=== PATIENT | female | born 1965 | race Caucasian/White ===

== ENCOUNTER 2020-02-26 08:37 | Day surgery (SDC) | payer BC, SELFPAY ==
[~2020-02-26] VITALS: Ht 162.6 cm; Wt 99.8 kg
[2020-02-26] MEDS ORDERED: ONDANSETRON HCL 4 MG/2 ML VIAL ONE (15:40)
[2020-02-26] MEDS ORDERED: GLYCOPYRROLATE 0.2 MG/ML VIAL ONE (15:40)
[2020-02-26] MEDS ORDERED: MIVACURIUM CHLORIDE 20 MG/10 ML VIAL (MIVACRON) INJ ONE (15:40)
[2020-02-26] MEDS ORDERED: DEXAMETHASONE SOD PHOSPHATE 4 MG/ML VIAL ONE (15:40)
[2020-02-26] MEDS ORDERED: WATER FOR IRRIGATION,STERILE 1,000 ML IRRIG.SOLN IR ONE (15:40)
[2020-02-26] MEDS ORDERED: ROCURONIUM BROMIDE 10 MG/ML (ZEMURON) ONE (15:40)
[2020-02-26] MEDS ORDERED: LR 1,000 ML IV.SOLN IV ONE (15:40)
[2020-02-26] MEDS ORDERED: LIDOCAINE/EPI 1% 1:100000 20 ML VIAL INJ ONE (15:40)
[2020-02-26] MEDS ORDERED: DESFLURANE 15 MIN GAS INH ONE (15:40)
[2020-02-26] MEDS ORDERED: OXYMETAZOLINE HCL 0.05% NASAL SPRAY NS ONE (15:40)
[2020-02-26] MEDS ORDERED: NEOSTIGMINE METHYLSULFATE 1 MG/ML, 10 ML VIAL ONE (15:40)
[2020-02-26] MEDS ORDERED: MIDAZOLAM HCL 5 MG/ML VIAL (VERSED) IV ONE (15:40)
[2020-02-26] MEDS ORDERED: PROPOFOL 200MG/ 20ML VIAL (DIPRIVAN) IV ONE (15:40)
[2020-02-26] MEDS ORDERED: fentaNYL CITRATE/PF 100 MCG/2 ML AMP ONE (15:40)
[2020-02-26] MEDS ORDERED: EPINEPHrine 1 MG/ML AMP ONE (15:40)
[2020-02-26] MEDS ORDERED: NS IRRIG SOLN 1000 ML IR ONE (15:40)
[2020-02-26] MEDS ORDERED: HYDROmorphone 1 MG INJ. 1 MG/ML AMPUL IVP PRN (15:45)
[2020-02-26] MEDS ORDERED: MIDAZOLAM HCL 2 MG/2 ML VIAL (VERSED) IVP PRN (15:45)
[2020-02-26] MEDS ORDERED: METOCLOPRAMIDE HCL 10 MG/2 ML VIAL IVP PRN (15:45)
[2020-02-26] MEDS ORDERED: HYDROmorphone 2 MG/ML VIAL IVP PRN (15:45)
[2020-02-26] MEDS ORDERED: LR 1,000 ML IV SCH (15:45)
[2020-02-26] MEDS ORDERED: LABETALOL 100 MG/ 20ML VIAL IVP PRN (15:45)
[2020-02-26] MEDS ORDERED: ONDANSETRON HCL 4 MG/2 ML VIAL IVP PRN (15:45)
[2020-02-26] MEDS ORDERED: MORPHINE SULFATE 10 MG/ML VIAL IVP PRN (15:45)
[2020-02-26] MEDS ORDERED: MEPERIDINE HCL/PF 25 MG/ML DISP.SYRIN IVP PRN (15:45)
[2020-02-26 18:49] VITALS: BP_SYST 133
--- NOTE | 2020-03-08 14:28 | NUR ---
Patient was called and notified her "Not Detected" COVID-19 Laboratory test results and instructed to follow the recommended preventive measures ([facility]).
== END 2020-02-26 19:20 | disposition home or self-care (01) ==
LOC: SMU 08:37 → SDS 08:37
PROVIDERS: ATTEND Otolaryngology
DX: J34.2 Deviated nasal septum (principal); N95.1 Menopausal and female climacteric states; R09.82 Postnasal drip; J32.4 Chronic pansinusitis; K21.9 Gastro-esophageal reflux disease without esophagitis; F41.9 Anxiety disorder, unspecified; E66.01 Morbid (severe) obesity due to excess calories
CPT/HCPCS: 30140; 30520; 31255; 31256; 31297; 88305; 88311; J0171; J1100; J2250; J2405; J2704; J2710; J3010; J3465; J3490; J7120